=== PATIENT | male | born 1980 | race African-American/Black ===

== ENCOUNTER 2024-03-02 09:33 | Emergency (ER) | payer OTHER, SELFPAY ==
[2024-03-02 09:34] VITALS: BP 110/85
--- NOTE | 2024-03-02 09:39 | ED.GENMED ---
History of Present Illness
General
Chief Complaint: Headache
Time Seen by Provider: 03/02/24 09:39
Travel History
Have you had any contact with someone who has COVID-19?: No
Do you have any symptoms of coronavirus? Fever > 100 degrees, chills, cough, shortness of breath, sore throat, loss of taste or smell, muscle aches, or headache?: No
History of Present Illness
History of Present Illness:
HPI: Patient presents with headache. He has a history of chronic migraine. He has had this headache for the past week or so. He states he was at [facility] where they gave him some medicine but left with a headache still. This morning around 8 AM,
the patient had left upper extremity numbness. This was new for him. A lot of his pain is in upper portion of the the back of his neck. The patient denies any trauma. He says that his primary care doctor, Dr. Fonseca, sent him specifically to
[facility] for further evaluation.
EXAM:
GENERAL: The patient appears uncomfortable, he is tearful
HEENT: Moist oral mucosa
NECK: Decreased active range of motion due to pain
CARDIOVASCULAR: No murmurs, normal heart rate, regular rhythm, No chest wall tenderness
PULMONARY: No respiratory distress, breath sounds are clear and equal
ABDOMEN: Soft with no peritoneal signs, no tenderness
NEUROLOGIC: Excellent strength all extremities, no coordination deficits, mild sensory deficit noted to the left upper extremity diffusely, no sensory deficit of the lower extremities
PSYCHIATRIC: The patient is tearful and upset, normal insight and judgement
EXTREMITIES: Nontender, no edema, moves all extremities equally
SKIN: No rash, no lesions
TIME OF INITIAL ENCOUNTER: 9:45 AM
NUMBER AND COMPLEXITY OF PROBLEMS ADDRESSED AT THE ENCOUNTER
� Chronic conditions affecting care: History of migraine
� Acute Exacerbation and/or Progression of Chronic Illness: Acute exacerbation of migraine
� Differential Diagnosis includes: Acute exacerbation of migraine, intracranial mass, complex migraine,
AMOUNT AND/OR COMPLEXITY OF DATA TO BE REVIEWED AND ANALYZED
� I performed an independent evaluation of and my interpretation is:
EKG:
CT: I personally viewed CT imaging of the brain and agree with radiologist interpretation that there is no acute abnormality
X-rays:
Laboratory Studies: CBC and chemistries unremarkable
Other:
� Review of other/old records: No old records available for review in [facility].
� Clinical information was obtained by an independent historian: None needed
� Prescriptions/Medications Considered but not given:
� Further testing considered but not performed:
RISK OF COMPLICATIONS AND/OR MORBIDITY OR MORTALITY OF PATIENT MANAGEMENT
� Social determinants of health affecting care: Lives at home, recently is at [facility]
� Discussion with other providers: Discussed case with Dr. Wood as patient did have focal left upper extremity sensory deficit�he recommends adding Imitrex and steroids.
� Escalation of care including admission/observation vs risk of discharge considered: The patient appeared uncomfortable upon arrival. He was tearful upon arrival as well. He does have a rather significant headache and
therefore will obtain CT imaging as he does have sensory deficits to the left upper extremity which are mild. On reassessment 11:40 AM, the patient appears much more comfortable. He is resting comfortably in no significant distress. He did
receive Imitrex as well as steroids in addition to Toradol, Benadryl/Reglan. CT imaging reassuring. He overall reports improvement regarding the paresthesias that he had to the left upper extremity earlier. Already evaluated in the ED and
recommends limited use of Imitrex as outpatient.
Phy Exam
Physical Exam
Physical Exam:
See HPI
Course
Orders/Labs/Results
Orders:
Orders
03/02/24 09:45
CT Head W/o Iv Contrast Urgent
Comment:
Reason For Exam: severe FLOWERS; LUE paresthesias new
03/02/24 09:46
0.9% Sodium Chloride 1000 ml [Nss] 1,000 ml IV BOLUS
Diphenhydramine [Benadryl] 25 mg IV NOW STA
Ketorolac [Toradol] 15 mg IV NOW STA
Metoclopramide [Reglan] 10 mg IV NOW STA
03/02/24 09:50
Basic Metabolic Panel Urgent
Complete Blood Count/With Diff Urgent
03/02/24 10:11
Electrocardiogram (*1) Urgent
Reason for Study: TIA/Stroke
EKG- Treatment ONCE
03/02/24 10:23
MethylPREDNISolone PF [Solu-Medrol Pf] 60 mg IV NOW STA
03/02/24 10:35
Sumatriptan Succinate [Imitrex] 100 mg PO NOW STA
Abnormal Lab Results
03/02/24
09:50
MCH 26.8 L pg
(27.0-31.0)
MCHC 32.8 L g/dL
(33.0-37.0)
MPV 10.9 H fL
(7.4-10.4)
Glucose 101 H mg/dl
(70-99)
03/02/24 09:50
03/02/24 09:50
Vital Signs
Initial and Last Documented VS:
Initial Vital Signs
Temp Pulse Resp BP Pulse Ox
98.9 F 88 18 110/85 100
03/02/24 09:34 03/02/24 09:34 03/02/24 09:34 03/02/24 09:34 03/02/24 09:34
Last Documented Vital Signs
Temp Pulse Resp BP Pulse Ox
98.9 F 88 18 110/85 100
03/02/24 09:34 03/02/24 09:34 03/02/24 09:34 03/02/24 09:34 03/02/24 09:34
*Critical Care Note
Total Time (30-74mins, 75-104mins- exclusive of procedures): Not Applicable
ED Attending Note
-
Portions of this chart may have been created with voice recognition software.� Occasional wrong word or��sound alike� substitutions may have occurred due to the inherent limitations of voice recognition software.
Discharge Plan
Departure
Patient Disposition: Home (Routine Discharge)
Date of Disposition: 03/02/24
Time of Disposition: 12:02
Patient with high blood pressure during this ER visit?: Yes
Discharge Problem:
Migraine
Instructions: Migraines (DC), BLOOD PRESSURE
Prescriptions:
New
sumatriptan succinate [Imitrex] 50 mg tablet
50 mg PO Q2H PRN (Reason: migraine headache) Qty: 4 0RF
prednisone 50 mg tablet
50 mg PO DAILY Qty: 5 0RF
Referrals:
Jeremiah Wood MD [Active] - Follow up in 2-3 days
Bogdan Fonseca MD [Family Provider] -
Activity Restrictions/Additional Instructions:
I also asked Dr. Wood to evaluate you in the ED (neurologist)�please call their office for follow-up. Limit use of Imitrex to once or twice a week. Next dose of steroids tomorrow morning (prednisone).
Interventions
Interventions:
*Risk Screen - Suicide Last Done: 03/02/24 09:37
*General Assessment Last Done: 03/02/24 09:37
*Neglect/Abuse Screening Last Done: 03/02/24 09:37
ED- Neurological Assessment Last Done: 03/02/24 09:58
Discharge Date and Time
Print Language: TURKMEN
[2024-03-02] MEDS: REGLAN 10 MG IV (09:54)
[2024-03-02] MEDS: TORADOL 15 MG IV (09:54)
[2024-03-02] MEDS: NSS 1000 IV (09:54)
[2024-03-02] MEDS: BENADRYL 25 MG IV (09:54)
[2024-03-02 09:57] VITALS: BMI 23.4
[2024-03-02 10:12] LABS: % Basophils 0.5 % (0-2); % Eosinophils 1.6 % (0-6); % Immature Granulocytes 0.2 % (0-0.5); % Lymphocytes 22.4 % (20.5-51.1); % Neutrophils 67.3 % (42.2-75.2); Absolute Eosinophils 0.1 10^3/uL (0-0.7); Absolute Lymphocytes 1.4 10^3/uL (1.2-3.4); Absolute Monocytes 0.5 10^3/uL (0.1-0.6); Absolute Neutrophils 4.1 10^3/uL (1.4-6.5); Hematocrit 41.8 % (39.0-52.0); Hemoglobin 13.7 g/dL (13.0-18.0); Mean Corp Hgb Conc. 32.8 g/dL (33.0-37.0); Mean Corpuscular Hgb 26.8 pg (27.0-31.0); Mean Corpuscular Volume 81.6 fL (80.0-94.0); Mean Platelet Volume 10.9 fL (7.4-10.4); Nucleated Red Blood Cells % 0 % (-); Platelet Count 168 10^3/uL (130-400); Red Blood Cell Count 5.12 10^6/uL (4.70-6.10); Red Cell Dist. Width 13.2 % (11.5-14.5); White Blood Cell Count 6.2 10^3/uL (4.8-10.8)
[2024-03-02 10:27] LABS: Blood Urea Nitrogen 10 mg/dl (9-20); Calcium 9.4 mg/dl (8.4-10.2); Carbon Dioxide 26 mmol/L (22-30); Chloride 103 mmol/L (98-107); Estimated Creatinine Clearance 124 ml/min; Glucose 101 mg/dl (70-99); Potassium 3.9 mmol/L (3.5-5.1); Sodium 137 mmol/L (135-145); eGFR > 60.00
--- NOTE | 2024-03-02 10:55 | CON.NEURO4 ---
Consultation - Neurology 4
-
CONSULTING PHYSICIAN: Cristobal Wood
REFERRING PHYSICIAN: ER
DICTATED BY: Cristobal Wood
DATE/TIME OF REQUEST: 03/02/24
DATE/TIME OF CONSULTATION: 03/02/24
Reason for Consultation: Headache, left arm numbness
History of Present Illness:
Patient is a 43-year-old right-handed man with a past no history of migraines presented to hospital with several days of headache and then started develop left hand paresthesia this morning so was referred by his primary care doctor to the ED.
Patient reports that he does have frequent headaches that have never been this severe. He feels like he does usually have headaches most days of the week. He has not previously had any numbness of the face or arm or any vision changes with these
headaches.
No recent illnesses or obvious triggers to this current headache no recent head or neck trauma. No vomiting recently does have significant photophobia fatigue and significant headache.
No fevers or chills or unusual weight loss or rashes. No unilateral weakness or speech difficulty. Left arm paresthesia present to a mild extent.
He was given cocktail of medications for headache in the ED and does report significant improvement although still with some fatigue and minor headache.
Past Medical History: Asthma
Surgical History: None
Family History: No family history of significant headaches
Social History: Employed working as [employer] and additionally a 2nd job as well, lives with family, some tobacco use, little alcohol
Allergies: No known drug allergies
Review of Symptoms:
Patient denies any fever, headache, chest pain, shortness of breath, GI or symptoms.
Physical Exam:
Well-appearing young middle-age man mildly uncomfortable appearing no signs of head or neck trauma oropharynx is clear heart rate regular breathing unlabored abdomen soft nontender no lower extremity edema or rash
Neurologic Examination:
The patient is awake, alert and oriented x 3. (He/She) is able to follow commands and answer questions appropriately. There is no aphasia or dysarthria. On cranial nerve assessment, pupils are 3 mm bilateral, round and reactive to light and
accommodation. Visual dickey are full. Extraocular movements are intact. Facial sensations are intact and bilaterally symmetrical, there is no facial asymmetry. Hearing is intact bilaterally to normal conversation volume. Tongue palate and uvula
are midline. Sternocleidomastoid strengths are full bilaterally. Motor strengths are 5/5 bilateral upper and lower extremities on medical research Compton scale. There is no drift or involuntary movement noted. Deep tendon reflexes are 2+ bilateral
upper and lower extremities and Babinski is absent bilaterally. Sensations of pain, touch, temperature and vibration are intact and bilaterally symmetrical. There was no extinction noted on double simultaneous stimulation. Coordination is intact by
finger to nose bilaterally.
Neuro Imaging: CT head non contrast unremarkable
Impressions
Chronic migraine it appears at baseline and has evolved into status migrainosus that probably explains the left arm paresthesia. Reassuring neurologic exam otherwise with normal blood pressure and normal CT head noncontrast make me feel extremely
unlikely he has had any structural issue to the brain such as arterial or venous stroke.
Recommendations:
1. Would discharge with 50 mg prednisone for 5 days and then stop
2. Provide prescription for as needed sumatriptan 50 mg, instructed the patient he can take this as needed with Advil but needs to limit the total number of days per week to only 2 otherwise this risk of medication overuse head
3. I will send a prescription to his pharmacy for starting topiramate. Will avoid propranolol with history of mild asthma.
-Wrote out instructions for him to start 25 mg once a day, after 1 week increase to 25 mg twice daily, after 2 weeks increase to 50 mg twice daily
4. Provided information for neurology office outpatient follow-up in about 4-6 weeks
5. No further workup or imaging I feel is necessary, if feeling improved no barriers to discharge home from my POV
Discussed patient care with: Patient, ED
[2024-03-02] MEDS: IMITREX 100 MG PO (10:58)
[2024-03-02] MEDS: SOLU-MEDROL PF 60 MG IV (10:58)
[2024-03-02 12:11] VITALS: BP 108/80
== END 2024-03-02 12:13 | disposition home or self-care (01) ==
LOC: EMR 09:33
PROVIDERS: EMERGENCY PHYSICIAN Emergency Medicine; FAMILY PHYSICIAN Internal Medicine
DX: G43.909 Migraine, unspecified, not intractable, without status migrainosus (principal); R20.2 Paresthesia of skin; M54.2 Cervicalgia; R03.0 Elevated blood-pressure reading, without diagnosis of hypertension
CPT/HCPCS: 99284; 96374; 96375 ×3; 96361; 70450; 80048; 85025